=== PATIENT | male | born 1960 | race Caucasian/White ===

== ENCOUNTER 2016-08-19 12:08 | Inpatient (IN) | payer OTHER ==
[2016-08-19 15:33] VITALS: BMI 34.2
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
[2016-08-19] MEDS ORDERED: MAGNESIUM CITRATE 300 ML BOTTLE PO PRN (18:05)
[2016-08-19] MEDS ORDERED: MENTHOL/PHENOL 1 EACH UD MM PRN (18:05)
[2016-08-19] MEDS ORDERED: LOPERAMIDE HCL 2 MG CAPSULE PO PRN (18:05)
[2016-08-19] MEDS ORDERED: P-EPHED 60MG/TRIPROLIDI 2.5MG TABLET PO PRN (18:05)
[2016-08-19] MEDS ORDERED: guaiFENesin/D-METHORPHAN HB 10 ML UNIT-DOSE CUPS PO PRN (18:05)
[2016-08-19] MEDS: diphenhydrAMINE HCL 50 MG CAPSULE PO PRN (23:44)
[2016-08-19] MEDS: THIAMINE HCL 100 MG TABLET (FP) PO SCH (23:44)
[2016-08-19] MEDS: ARTIFICIAL TEARS (POLYVINYL ALCOHOL 1.4%) OPTH DROPS OD SCH (23:50)
[2016-08-19] MEDS: prednisoLONE ACETATE 1% OPHTH SUSP 5 ML BOTTLE OD SCH (23:50)
[2016-08-20] MEDS: ARTIFICIAL TEARS (POLYVINYL ALCOHOL 1.4%) OPTH DROPS OD SCH ×2 (10:00→21:16)
[2016-08-20] MEDS: prednisoLONE ACETATE 1% OPHTH SUSP 5 ML BOTTLE OD SCH ×2 (10:00→21:16)
[2016-08-20] MEDS: PRENATAL VITAMINS W/ FOLIC ACID TABLET (FP) PO SCH (10:01)
[2016-08-20 10:02] LABS: MCH 33.9 pg (25.7-33.7); MCHC 34.8 g/dl (32.0-35.9); MEAN CELL VOLUME 97.5 fl (80-96); MEAN PLT VOLUME 9.2 fl (7.5-11.1); PLATELET COUNT 257 K/MM3 (134-434); RDW 12.4 % (11.9-15.9); WHITE BLOOD COUNT 7.6 K/mm3 (4.0-10.0)
[2016-08-20] MEDS: IBUPROFEN 400 MG TABLET (FP) PO PRN ×2 (10:02→21:17)
[2016-08-20 10:34] LABS: CALCIUM 9.7 mg/dL (8.5-10.1); COCKROFT - GAULT 108.35; CREATININE 1.3 mg/dL (0.7-1.3); TOT PROT 7.5 g/dl (6.4-8.2)
[2016-08-20 10:37] LABS: BILIRUBIN,TOTAL 0.4 mg/dL (0.2-1.0)
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
--- NOTE | 2016-08-20 12:15 | EKG ---
Test Reason : Blood Pressure : / mmHG Vent. Rate : 096 BPM Atrial Rate : 096 BPM P-R Int : 158 ms QRS Dur : 108 ms QT Int : 338 ms P-R-T Axes : 028 035 056 degrees QTc Int : 427 ms NORMAL SINUS RHYTHM INCOMPLETE RIGHT BUNDLE BRANCH BLOCK BORDERLINE ECG NO PREVIOUS ECGS AVAILABLE Confirmed by HELGA ROLON, GUME ([id number]) on 08/20/2016 12:14:41 PM Referred By: Confirmed By:GUME PARTIDA MD
[2016-08-20] MEDS: GABAPENTIN 100 MG CAPSULE (FP) PO SCH ×2 (14:18→21:17)
[2016-08-20 20:03] LABS: URINE APPEARANCE CLEAR; URINE BILIRUBIN NEGATIVE (NEGATIVE); URINE BLOOD NEGATIVE (NEGATIVE); URINE COLOR STRAW; URINE GLUCOSE (UA) NEGATIVE (NEGATIVE); URINE KETONE NEGATIVE (NEGATIVE); URINE LEUK ESTERASE NEGATIVE (NEGATIVE); URINE NITRITE NEGATIVE (NEGATIVE); URINE PROTEIN NEGATIVE (NEGATIVE); URINE UROBILINOGEN NEGATIVE E.U./dl (0.2-1.0)
[2016-08-20] MEDS: THIAMINE HCL 100 MG TABLET (FP) PO SCH (21:17)
[2016-08-20] MEDS: SUVOREXANT 10 MG TABLET PO PRN (21:19)
[2016-08-21] MEDS: IBUPROFEN 400 MG TABLET (FP) PO PRN ×2 (06:22→21:20)
[2016-08-21] MEDS: GABAPENTIN 100 MG CAPSULE (FP) PO SCH ×3 (06:22→21:19)
[2016-08-21] MEDS: PRENATAL VITAMINS W/ FOLIC ACID TABLET (FP) PO SCH (09:51)
[2016-08-21] MEDS: prednisoLONE ACETATE 1% OPHTH SUSP 5 ML BOTTLE OD SCH ×2 (09:52→21:19)
[2016-08-21] MEDS: ARTIFICIAL TEARS (POLYVINYL ALCOHOL 1.4%) OPTH DROPS OD SCH ×2 (09:52→21:19)
[2016-08-21] MEDS: ACETAMINOPHEN 325 MG TABLET (FP) PO PRN ×2 (09:53→17:13)
[2016-08-21] MEDS: THIAMINE HCL 100 MG TABLET (FP) PO SCH (21:19)
[2016-08-21] MEDS: SUVOREXANT 10 MG TABLET PO PRN (21:21)
[2016-08-22] MEDS: GABAPENTIN 100 MG CAPSULE (FP) PO SCH ×3 (06:22→21:24)
[2016-08-22] MEDS: IBUPROFEN 400 MG TABLET (FP) PO PRN ×2 (06:23→21:27)
[2016-08-22] MEDS: PRENATAL VITAMINS W/ FOLIC ACID TABLET (FP) PO SCH (09:47)
[2016-08-22] MEDS: prednisoLONE ACETATE 1% OPHTH SUSP 5 ML BOTTLE OD SCH ×2 (09:48→21:24)
[2016-08-22] MEDS: ARTIFICIAL TEARS (POLYVINYL ALCOHOL 1.4%) OPTH DROPS OD SCH ×2 (09:49→21:25)
[2016-08-22] MEDS: THIAMINE HCL 100 MG TABLET (FP) PO SCH (21:24)
[2016-08-22] MEDS: SUVOREXANT 10 MG TABLET PO PRN (21:27)
[2016-08-23] MEDS: GABAPENTIN 100 MG CAPSULE (FP) PO SCH ×3 (06:29→21:31)
[2016-08-23] MEDS: IBUPROFEN 400 MG TABLET (FP) PO PRN ×2 (06:31→21:34)
[2016-08-23] MEDS: PRENATAL VITAMINS W/ FOLIC ACID TABLET (FP) PO SCH (09:37)
[2016-08-23] MEDS: ARTIFICIAL TEARS (POLYVINYL ALCOHOL 1.4%) OPTH DROPS OD SCH ×2 (09:38→21:36)
[2016-08-23] MEDS: prednisoLONE ACETATE 1% OPHTH SUSP 5 ML BOTTLE OD SCH ×2 (09:38→21:35)
[2016-08-23] MEDS: THIAMINE HCL 100 MG TABLET (FP) PO SCH (21:31)
[2016-08-23] MEDS: SUVOREXANT 10 MG TABLET PO PRN (21:33)
[2016-08-23] MEDS: MAGNESIUM HYDROX 2400MG/30ML ORAL SUSPENSION 30 ML CUP PO PRN (21:37)
[2016-08-24] MEDS: GABAPENTIN 100 MG CAPSULE (FP) PO SCH ×3 (06:04→21:38)
[2016-08-24] MEDS: IBUPROFEN 400 MG TABLET (FP) PO PRN ×2 (06:05→21:38)
[2016-08-24] MEDS: PRENATAL VITAMINS W/ FOLIC ACID TABLET (FP) PO SCH (09:52)
[2016-08-24] MEDS: ARTIFICIAL TEARS (POLYVINYL ALCOHOL 1.4%) OPTH DROPS OD SCH ×2 (09:52→21:37)
[2016-08-24] MEDS: prednisoLONE ACETATE 1% OPHTH SUSP 5 ML BOTTLE OD SCH ×2 (09:53→21:36)
[2016-08-24] MEDS: MAG HYDROX/AL HYDROX/SIMETH 30 ML UNIT-DOSE CUP PO PRN (09:54)
[2016-08-24] MEDS: ACETAMINOPHEN 325 MG TABLET (FP) PO PRN (14:26)
[2016-08-24] MEDS: THIAMINE HCL 100 MG TABLET (FP) PO SCH (21:38)
[2016-08-24] MEDS: diphenhydrAMINE HCL 50 MG CAPSULE PO PRN (21:39)
[2016-08-25] MEDS: GABAPENTIN 100 MG CAPSULE (FP) PO SCH ×3 (06:26→21:13)
[2016-08-25] MEDS: IBUPROFEN 400 MG TABLET (FP) PO PRN (06:27)
[2016-08-25] MEDS ORDERED: PT OWN MED DRAWER 7, Y5N ONE (08:46)
[2016-08-25] MEDS: PRENATAL VITAMINS W/ FOLIC ACID TABLET (FP) PO SCH (10:05)
[2016-08-25] MEDS: prednisoLONE ACETATE 1% OPHTH SUSP 5 ML BOTTLE OD SCH ×2 (10:06→21:13)
[2016-08-25] MEDS: ARTIFICIAL TEARS (POLYVINYL ALCOHOL 1.4%) OPTH DROPS OD SCH ×2 (10:06→21:13)
[2016-08-25] MEDS: MAG HYDROX/AL HYDROX/SIMETH 30 ML UNIT-DOSE CUP PO PRN (10:09)
[2016-08-25] MEDS: ACETAMINOPHEN 325 MG TABLET (FP) PO PRN (10:09)
--- NOTE | 2016-08-25 15:46 | PN ---
Psychiatric Progress Note Vital Signs: Vital Signs Period Temp Pulse Resp BP Sys/Mckeon Pulse Ox Last 24 Hr 98.5 F 85 18-18 129/84 Date of Session: 08/25/16 Chief Complaint:: progress update HPI: Patient is addressing alcohol, cocaine, opioid cannabis dependence comorbid substance induced sleep and anxiety diorder. Current Medications: Active Medications Generic Name Dose Route Start Last Admin Trade Name Freq PRN Reason Stop Dose Admin Acetaminophen 650 mg 08/19/16 18:05 08/25/16 10:09 Tylenol - PO 650 mg Q4H PRN Administration PAIN Al Hydroxide/Mg Hydroxide 30 ml 08/19/16 18:05 08/25/16 10:09 Mylanta Oral Suspension - PO 30 ml Q6H PRN Administration DYSPEPSIA Artificial Tears 1 drop 08/19/16 22:00 08/25/16 10:06 Artificial Tears OD 1 drop BID ALLY Administration Diphenhydramine HCl 50 mg 08/19/16 18:05 08/24/16 21:39 Benadryl - PO 50 mg HSMR1 PRN Administration INSOMNIA Eucalyptus/Menthol/Phenol/Sorbitol 1 each 08/19/16 18:05 Cepastat Lozenge - MM Q4H PRN SORE THROAT Gabapentin 200 mg 08/25/16 15:36 Neurontin - PO TID ALLY Guaifenesin 10 ml 08/19/16 18:05 Robitussin Dm - PO Q6H PRN COUGH Ibuprofen 400 mg 08/19/16 18:05 08/25/16 06:27 Motrin - PO 400 mg Q6H PRN Administration SEVERE PAIN Loperamide HCl 4 mg 08/19/16 18:05 Imodium - PO Q6H PRN DIARRHEA Magnesium Citrate 300 ml 08/19/16 18:05 Citroma - PO Q48H PRN CONSTIPATION Magnesium Hydroxide 30 ml 08/19/16 18:05 08/23/16 21:37 Milk Of Magnesia - PO 30 ml DAILY PRN Administration CONSTIPATION Prednisolone Acetate 1 drop 08/19/16 22:00 08/25/16 10:06 Pred Forte 1% - OD 1 drop BID ALLY Administration Multivit/Folic Acid/Iron 1 tab 08/20/16 10:00 08/25/16 10:05 Vitamins ([facility]) - PO 1 tab DAILY ALLY Administration Pseudoephedrine/Triprolidine 1 combo 06/13/17 18:05 Actifed - PO TID PRN NASAL CONGESTION Thiamine HCl 100 mg 08/19/16 22:00 08/24/16 21:38 Vitamin B1 - PO 100 mg HS ALLY Administration Current Side Effect: No Lab tests ordered: No Lab tests reviewed: Yes Provider note:: PAtient seem to be adjusted to the unit, he is visible and attends groups. Patient c/o insomnia and anxiety. Reviewed medications with the patient discussed indications and properteies of his current medications, will increase Neurontin 200 mg po tid r/n Belsomra 10 mg po hs, continue to monitor progress. Total face to face time:: 15 Mental Status Exam - Mental Status Exam Alert and Oriented to: Time, Place, Person Cognitive Function: Grossly Intact Patient Appearance: Well Groomed Mood: Anxious Affect: Appropriate, Mood Congruent Patient Behavior: Appropriate, Cooperative Speech Pattern: Appropriate Voice Loudness: Normal Thought Process: Goal Oriented Thought Disorder: Not Present Hallucinations: Denies Suicidal Ideation: Denies Homicidal Ideation: Denies Insight/Judgement: Fair Sleep: Poorly, Difficulty falling asleep Appetite: Good Muscle strength/Tone: Normal Gait/Station: Other (needs assistance, patient is blind) Psychiatric Treatment Plan - Problem List (1) Alcohol dependence Current Visit: Yes (2) Cannabis dependence Current Visit: Yes (3) Cocaine dependence Current Visit: Yes (4) Opioid dependence Current Visit: Yes (5) Anxiety disorder Current Visit: Yes (6) Substance-induced sleep disorder Current Visit: Yes
[2016-08-25] MEDS: THIAMINE HCL 100 MG TABLET (FP) PO SCH (21:13)
[2016-08-25] MEDS: diphenhydrAMINE HCL 50 MG CAPSULE PO PRN (21:13)
[2016-08-26] MEDS: GABAPENTIN 100 MG CAPSULE (FP) PO SCH ×3 (06:29→21:20)
[2016-08-26] MEDS: IBUPROFEN 400 MG TABLET (FP) PO PRN ×2 (06:30→21:22)
[2016-08-26] MEDS: prednisoLONE ACETATE 1% OPHTH SUSP 5 ML BOTTLE OD SCH ×2 (09:48→21:21)
[2016-08-26] MEDS: PRENATAL VITAMINS W/ FOLIC ACID TABLET (FP) PO SCH (09:48)
[2016-08-26] MEDS: ARTIFICIAL TEARS (POLYVINYL ALCOHOL 1.4%) OPTH DROPS OD SCH ×2 (09:48→21:21)
[2016-08-26] MEDS: ACETAMINOPHEN 325 MG TABLET (FP) PO PRN (09:50)
[2016-08-26] MEDS: MAG HYDROX/AL HYDROX/SIMETH 30 ML UNIT-DOSE CUP PO PRN (14:16)
[2016-08-26] MEDS: SUVOREXANT 10 MG TABLET PO PRN (21:21)
[2016-08-26] MEDS: THIAMINE HCL 100 MG TABLET (FP) PO SCH (21:21)
[2016-08-27] MEDS: IBUPROFEN 400 MG TABLET (FP) PO PRN ×2 (07:01→21:13)
[2016-08-27] MEDS: GABAPENTIN 100 MG CAPSULE (FP) PO SCH ×3 (07:01→21:11)
[2016-08-27] MEDS: prednisoLONE ACETATE 1% OPHTH SUSP 5 ML BOTTLE OD SCH ×2 (09:51→21:11)
[2016-08-27] MEDS: ARTIFICIAL TEARS (POLYVINYL ALCOHOL 1.4%) OPTH DROPS OD SCH ×2 (09:51→21:11)
[2016-08-27] MEDS: PRENATAL VITAMINS W/ FOLIC ACID TABLET (FP) PO SCH (09:51)
[2016-08-27] MEDS: ACETAMINOPHEN 325 MG TABLET (FP) PO PRN (09:52)
[2016-08-27] MEDS: THIAMINE HCL 100 MG TABLET (FP) PO SCH (21:11)
[2016-08-27] MEDS: SUVOREXANT 10 MG TABLET PO PRN (21:12)
[2016-08-28] MEDS: IBUPROFEN 400 MG TABLET (FP) PO PRN ×2 (06:12→21:19)
[2016-08-28] MEDS: GABAPENTIN 100 MG CAPSULE (FP) PO SCH ×2 (06:12→14:19)
[2016-08-28] MEDS: prednisoLONE ACETATE 1% OPHTH SUSP 5 ML BOTTLE OD SCH ×2 (09:54→21:16)
[2016-08-28] MEDS: ARTIFICIAL TEARS (POLYVINYL ALCOHOL 1.4%) OPTH DROPS OD SCH ×2 (09:54→21:17)
[2016-08-28] MEDS: PRENATAL VITAMINS W/ FOLIC ACID TABLET (FP) PO SCH (09:54)
[2016-08-28] MEDS: ACETAMINOPHEN 325 MG TABLET (FP) PO PRN (09:56)
[2016-08-28] MEDS ORDERED: GABAPENTIN 100 MG CAPSULE (FP) PO SCH (14:55)
--- NOTE | 2016-08-28 15:01 | PN ---
Psychiatric Progress Note Vital Signs: Vital Signs Period Temp Pulse Resp BP Sys/Mckeon Pulse Ox Last 24 Hr 98.1 F 73 18-18 130/75 Date of Session: 08/28/16 Chief Complaint:: "anxious" HPI: Patient is addressing alcohol, cocaine, opioid cannabis dependence comorbid substance induced sleep and anxiety disorder. ROS: WNL Current Medications: Active Medications Generic Name Dose Route Start Last Admin Trade Name Freq PRN Reason Stop Dose Admin Acetaminophen 650 mg 08/19/16 18:05 08/28/16 09:56 Tylenol - PO 650 mg Q4H PRN Administration PAIN Al Hydroxide/Mg Hydroxide 30 ml 08/19/16 18:05 08/26/16 14:16 Mylanta Oral Suspension - PO 30 ml Q6H PRN Administration DYSPEPSIA Artificial Tears 1 drop 08/19/16 22:00 08/28/16 09:54 Artificial Tears OD 1 drop BID ALLY Administration Diphenhydramine HCl 50 mg 08/19/16 18:05 08/25/16 21:13 Benadryl - PO 50 mg HSMR1 PRN Administration INSOMNIA Eucalyptus/Menthol/Phenol/Sorbitol 1 each 08/19/16 18:05 Cepastat Lozenge - MM Q4H PRN SORE THROAT Gabapentin 2,300 mg 08/28/16 14:55 Neurontin - PO TID ALLY Guaifenesin 10 ml 08/19/16 18:05 Robitussin Dm - PO Q6H PRN COUGH Ibuprofen 400 mg 08/19/16 18:05 08/28/16 06:12 Motrin - PO 400 mg Q6H PRN Administration SEVERE PAIN Loperamide HCl 4 mg 08/19/16 18:05 Imodium - PO Q6H PRN DIARRHEA Magnesium Citrate 300 ml 08/19/16 18:05 Citroma - PO Q48H PRN CONSTIPATION Magnesium Hydroxide 30 ml 08/19/16 18:05 08/23/16 21:37 Milk Of Magnesia - PO 30 ml DAILY PRN Administration CONSTIPATION Prednisolone Acetate 1 drop 08/19/16 22:00 08/28/16 09:54 Pred Forte 1% - OD 1 drop BID ALLY Administration Multivit/Folic Acid/Iron 1 tab 08/20/16 10:00 08/28/16 09:54 Vitamins ([facility]) - PO 1 tab DAILY ALLY Administration Pseudoephedrine/Triprolidine 1 combo 08/19/16 18:05 Actifed - PO TID PRN NASAL CONGESTION Thiamine HCl 100 mg 08/19/16 22:00 08/27/16 21:11 Vitamin B1 - PO 100 mg HS ALLY Administration Current Side Effect: No Lab tests ordered: No Lab tests reviewed: Yes Provider note:: Patient reports has been feeling anxious , states that Gabapentin is partially effective. He discussed his medical issues and importance to continue abstinence and his coming eye surgery. discussed with the patient treatment plan, will increase Gabapentin 300 mg po tid, renew Belsomra, continue to monitor progress. Total face to face time:: 35 Mental Status Exam - Mental Status Exam Alert and Oriented to: Time, Place, Person Cognitive Function: Good Patient Appearance: Well Groomed Mood: Anxious Affect: Appropriate Patient Behavior: Appropriate, Cooperative Speech Pattern: Clear, Appropriate Voice Loudness: Normal Thought Process: Intact Thought Disorder: Not Present Hallucinations: Denies Suicidal Ideation: Denies Homicidal Ideation: Denies Insight/Judgement: Fair Sleep: Fair Psychiatric Treatment Plan - Problem List (1) Alcohol dependence Current Visit: Yes (2) Cannabis dependence Current Visit: Yes (3) Cocaine dependence Current Visit: Yes (4) Opioid dependence Current Visit: Yes (5) Anxiety disorder Current Visit: Yes (6) Substance-induced sleep disorder Current Visit: Yes
[2016-08-28] MEDS: THIAMINE HCL 100 MG TABLET (FP) PO SCH (21:17)
[2016-08-28] MEDS: GABAPENTIN 300 MG CAPSULE (FP) PO SCH (21:17)
[2016-08-28] MEDS: SUVOREXANT 10 MG TABLET PO PRN (21:18)
[2016-08-29] MEDS: IBUPROFEN 400 MG TABLET (FP) PO PRN ×2 (06:01→21:23)
[2016-08-29] MEDS: GABAPENTIN 300 MG CAPSULE (FP) PO SCH ×3 (06:01→21:23)
[2016-08-29] MEDS: ACETAMINOPHEN 325 MG TABLET (FP) PO PRN (09:45)
[2016-08-29] MEDS: PRENATAL VITAMINS W/ FOLIC ACID TABLET (FP) PO SCH (09:45)
[2016-08-29] MEDS: ARTIFICIAL TEARS (POLYVINYL ALCOHOL 1.4%) OPTH DROPS OD SCH ×2 (09:46→21:21)
[2016-08-29] MEDS: prednisoLONE ACETATE 1% OPHTH SUSP 5 ML BOTTLE OD SCH ×2 (09:46→21:22)
[2016-08-29] MEDS: SUVOREXANT 10 MG TABLET PO PRN (21:23)
[2016-08-29] MEDS: THIAMINE HCL 100 MG TABLET (FP) PO SCH (21:24)
[2016-08-30] MEDS: GABAPENTIN 300 MG CAPSULE (FP) PO SCH ×3 (06:38→21:36)
[2016-08-30] MEDS: IBUPROFEN 400 MG TABLET (FP) PO PRN ×2 (06:38→21:35)
[2016-08-30] MEDS: PRENATAL VITAMINS W/ FOLIC ACID TABLET (FP) PO SCH (09:41)
[2016-08-30] MEDS: prednisoLONE ACETATE 1% OPHTH SUSP 5 ML BOTTLE OD SCH ×2 (09:42→23:12)
[2016-08-30] MEDS: ARTIFICIAL TEARS (POLYVINYL ALCOHOL 1.4%) OPTH DROPS OD SCH ×2 (09:42→22:30)
[2016-08-30] MEDS: ACETAMINOPHEN 325 MG TABLET (FP) PO PRN (09:43)
[2016-08-30] MEDS: MAG HYDROX/AL HYDROX/SIMETH 30 ML UNIT-DOSE CUP PO PRN (14:12)
[2016-08-30] MEDS: THIAMINE HCL 100 MG TABLET (FP) PO SCH (21:33)
[2016-08-30] MEDS: diphenhydrAMINE HCL 50 MG CAPSULE PO PRN (21:33)
[2016-08-31] MEDS: GABAPENTIN 300 MG CAPSULE (FP) PO SCH ×3 (06:41→21:15)
[2016-08-31] MEDS: IBUPROFEN 400 MG TABLET (FP) PO PRN ×2 (06:41→21:14)
[2016-08-31] MEDS: ARTIFICIAL TEARS (POLYVINYL ALCOHOL 1.4%) OPTH DROPS OD SCH ×2 (09:56→21:15)
[2016-08-31] MEDS: prednisoLONE ACETATE 1% OPHTH SUSP 5 ML BOTTLE OD SCH ×2 (09:56→21:14)
[2016-08-31] MEDS: PRENATAL VITAMINS W/ FOLIC ACID TABLET (FP) PO SCH (09:57)
[2016-08-31] MEDS: ACETAMINOPHEN 325 MG TABLET (FP) PO PRN (09:58)
[2016-08-31] MEDS: MAG HYDROX/AL HYDROX/SIMETH 30 ML UNIT-DOSE CUP PO PRN (14:57)
[2016-08-31] MEDS: SUVOREXANT 10 MG TABLET PO PRN (21:14)
[2016-08-31] MEDS: THIAMINE HCL 100 MG TABLET (FP) PO SCH (21:16)
[2016-09-01] MEDS: IBUPROFEN 400 MG TABLET (FP) PO PRN ×2 (05:47→21:23)
[2016-09-01] MEDS: GABAPENTIN 300 MG CAPSULE (FP) PO SCH ×3 (05:47→21:21)
[2016-09-01] MEDS: prednisoLONE ACETATE 1% OPHTH SUSP 5 ML BOTTLE OD SCH ×2 (10:07→21:22)
[2016-09-01] MEDS: ARTIFICIAL TEARS (POLYVINYL ALCOHOL 1.4%) OPTH DROPS OD SCH ×2 (10:08→21:22)
[2016-09-01] MEDS: ACETAMINOPHEN 325 MG TABLET (FP) PO PRN (10:09)
[2016-09-01] MEDS: PRENATAL VITAMINS W/ FOLIC ACID TABLET (FP) PO SCH (10:10)
[2016-09-01] MEDS: THIAMINE HCL 100 MG TABLET (FP) PO SCH (21:21)
[2016-09-01] MEDS: diphenhydrAMINE HCL 50 MG CAPSULE PO PRN (21:22)
[2016-09-02] MEDS: IBUPROFEN 400 MG TABLET (FP) PO PRN ×2 (05:48→21:35)
[2016-09-02] MEDS: GABAPENTIN 300 MG CAPSULE (FP) PO SCH ×3 (05:48→21:14)
[2016-09-02] MEDS: PRENATAL VITAMINS W/ FOLIC ACID TABLET (FP) PO SCH (10:06)
[2016-09-02] MEDS: ARTIFICIAL TEARS (POLYVINYL ALCOHOL 1.4%) OPTH DROPS OD SCH ×2 (10:06→21:13)
[2016-09-02] MEDS: prednisoLONE ACETATE 1% OPHTH SUSP 5 ML BOTTLE OD SCH ×2 (10:06→21:14)
[2016-09-02] MEDS: ACETAMINOPHEN 325 MG TABLET (FP) PO PRN (10:07)
[2016-09-02] MEDS: MAG HYDROX/AL HYDROX/SIMETH 30 ML UNIT-DOSE CUP PO PRN (14:21)
[2016-09-02] MEDS: THIAMINE HCL 100 MG TABLET (FP) PO SCH (21:14)
[2016-09-02] MEDS: MAGNESIUM HYDROX 2400MG/30ML ORAL SUSPENSION 30 ML CUP PO PRN (21:15)
[2016-09-02] MEDS: diphenhydrAMINE HCL 50 MG CAPSULE PO PRN (21:16)
[2016-09-03] MEDS: IBUPROFEN 400 MG TABLET (FP) PO PRN ×2 (07:05→21:14)
[2016-09-03] MEDS: GABAPENTIN 300 MG CAPSULE (FP) PO SCH ×3 (07:05→21:13)
[2016-09-03] MEDS: prednisoLONE ACETATE 1% OPHTH SUSP 5 ML BOTTLE OD SCH ×2 (09:52→21:13)
[2016-09-03] MEDS: ARTIFICIAL TEARS (POLYVINYL ALCOHOL 1.4%) OPTH DROPS OD SCH ×2 (09:52→21:13)
[2016-09-03] MEDS: PRENATAL VITAMINS W/ FOLIC ACID TABLET (FP) PO SCH (09:52)
[2016-09-03] MEDS: ACETAMINOPHEN 325 MG TABLET (FP) PO PRN (09:53)
[2016-09-03] MEDS: MAG HYDROX/AL HYDROX/SIMETH 30 ML UNIT-DOSE CUP PO PRN (09:54)
[2016-09-03] MEDS: THIAMINE HCL 100 MG TABLET (FP) PO SCH (21:13)
[2016-09-03] MEDS: diphenhydrAMINE HCL 50 MG CAPSULE PO PRN (21:15)
[2016-09-04] MEDS: IBUPROFEN 400 MG TABLET (FP) PO PRN ×2 (06:43→21:05)
[2016-09-04] MEDS: GABAPENTIN 300 MG CAPSULE (FP) PO SCH ×3 (06:43→21:03)
[2016-09-04] MEDS: PRENATAL VITAMINS W/ FOLIC ACID TABLET (FP) PO SCH (10:02)
[2016-09-04] MEDS: prednisoLONE ACETATE 1% OPHTH SUSP 5 ML BOTTLE OD SCH ×2 (10:03→21:03)
[2016-09-04] MEDS: ARTIFICIAL TEARS (POLYVINYL ALCOHOL 1.4%) OPTH DROPS OD SCH ×2 (10:03→21:03)
[2016-09-04] MEDS: ACETAMINOPHEN 325 MG TABLET (FP) PO PRN (10:04)
[2016-09-04] MEDS: THIAMINE HCL 100 MG TABLET (FP) PO SCH (21:03)
[2016-09-04] MEDS: diphenhydrAMINE HCL 50 MG CAPSULE PO PRN (21:04)
[2016-09-05] MEDS: IBUPROFEN 400 MG TABLET (FP) PO PRN ×2 (06:39→21:20)
[2016-09-05] MEDS: GABAPENTIN 300 MG CAPSULE (FP) PO SCH ×3 (06:39→21:18)
[2016-09-05] MEDS: ARTIFICIAL TEARS (POLYVINYL ALCOHOL 1.4%) OPTH DROPS OD SCH ×2 (09:55→21:18)
[2016-09-05] MEDS: prednisoLONE ACETATE 1% OPHTH SUSP 5 ML BOTTLE OD SCH ×2 (09:56→21:19)
[2016-09-05] MEDS: PRENATAL VITAMINS W/ FOLIC ACID TABLET (FP) PO SCH (09:56)
[2016-09-05] MEDS: ACETAMINOPHEN 325 MG TABLET (FP) PO PRN (09:58)
[2016-09-05] MEDS: THIAMINE HCL 100 MG TABLET (FP) PO SCH (21:18)
[2016-09-05] MEDS: diphenhydrAMINE HCL 50 MG CAPSULE PO PRN (21:20)
[2016-09-05] MEDS: MAGNESIUM HYDROX 2400MG/30ML ORAL SUSPENSION 30 ML CUP PO PRN (22:17)
[2016-09-06] MEDS: GABAPENTIN 300 MG CAPSULE (FP) PO SCH ×3 (06:11→21:17)
[2016-09-06] MEDS: IBUPROFEN 400 MG TABLET (FP) PO PRN ×2 (06:12→21:17)
[2016-09-06] MEDS: ARTIFICIAL TEARS (POLYVINYL ALCOHOL 1.4%) OPTH DROPS OD SCH ×2 (09:40→21:19)
[2016-09-06] MEDS: PRENATAL VITAMINS W/ FOLIC ACID TABLET (FP) PO SCH (09:40)
[2016-09-06] MEDS: prednisoLONE ACETATE 1% OPHTH SUSP 5 ML BOTTLE OD SCH ×2 (09:40→21:19)
[2016-09-06] MEDS: ACETAMINOPHEN 325 MG TABLET (FP) PO PRN (09:41)
[2016-09-06] MEDS: THIAMINE HCL 100 MG TABLET (FP) PO SCH (21:17)
[2016-09-06] MEDS: diphenhydrAMINE HCL 50 MG CAPSULE PO PRN (21:18)
[2016-09-07] MEDS: MAGNESIUM HYDROX 2400MG/30ML ORAL SUSPENSION 30 ML CUP PO PRN (01:26)
[2016-09-07] MEDS: diphenhydrAMINE HCL 50 MG CAPSULE PO PRN ×2 (01:27→21:30)
[2016-09-07] MEDS: GABAPENTIN 300 MG CAPSULE (FP) PO SCH ×3 (05:55→21:30)
[2016-09-07] MEDS: IBUPROFEN 400 MG TABLET (FP) PO PRN ×2 (05:55→21:31)
[2016-09-07] MEDS: PRENATAL VITAMINS W/ FOLIC ACID TABLET (FP) PO SCH (09:43)
[2016-09-07] MEDS: prednisoLONE ACETATE 1% OPHTH SUSP 5 ML BOTTLE OD SCH ×2 (09:44→21:33)
[2016-09-07] MEDS: ARTIFICIAL TEARS (POLYVINYL ALCOHOL 1.4%) OPTH DROPS OD SCH ×2 (09:44→21:33)
[2016-09-07] MEDS: MAG HYDROX/AL HYDROX/SIMETH 30 ML UNIT-DOSE CUP PO PRN (09:46)
[2016-09-07] MEDS: ACETAMINOPHEN 325 MG TABLET (FP) PO PRN (09:46)
[2016-09-07] MEDS: THIAMINE HCL 100 MG TABLET (FP) PO SCH (21:30)
[2016-09-08 05:52] VITALS: BP 123/83; PULSE 78; TEMP 97.5
[2016-09-08] MEDS: IBUPROFEN 400 MG TABLET (FP) PO PRN (07:23)
[2016-09-08] MEDS: GABAPENTIN 300 MG CAPSULE (FP) PO SCH (07:23)
[2016-09-08] MEDS: ARTIFICIAL TEARS (POLYVINYL ALCOHOL 1.4%) OPTH DROPS OD SCH (10:10)
[2016-09-08] MEDS: prednisoLONE ACETATE 1% OPHTH SUSP 5 ML BOTTLE OD SCH (10:10)
[2016-09-08] MEDS: PRENATAL VITAMINS W/ FOLIC ACID TABLET (FP) PO SCH (10:10)
[2016-09-08] MEDS ORDERED: PT OWN MED DRAWER 7, Y5N ONE (10:11)
--- NOTE | 2016-09-08 12:05 | PN ---
Psychiatric Progress Note Vital Signs: Vital Signs Period Temp Pulse Resp BP Sys/Mckeon Pulse Ox Last 24 Hr 97.5 F 78 18-18 123/83 Date of Session: 09/08/16 Chief Complaint:: discharge visit HPI: Patient is addressing alcohol, cocaine, opioid cannabis dependence comorbid substance induced sleep and anxiety disorder. ROS: WNL Current Medications: Active Medications Generic Name Dose Route Start Last Admin Trade Name Freq PRN Reason Stop Dose Admin Acetaminophen 650 mg 08/19/16 18:05 09/07/16 09:46 Tylenol - PO 650 mg Q4H PRN Administration PAIN Al Hydroxide/Mg Hydroxide 30 ml 08/19/16 18:05 09/07/16 09:46 Mylanta Oral Suspension - PO 30 ml Q6H PRN Administration DYSPEPSIA Artificial Tears 1 drop 08/19/16 22:00 09/08/16 10:10 Artificial Tears OD 1 drop BID ALLY Administration Diphenhydramine HCl 50 mg 08/19/16 18:05 09/07/16 21:30 Benadryl - PO 50 mg HSMR1 PRN Administration INSOMNIA Eucalyptus/Menthol/Phenol/Sorbitol 1 each 08/19/16 18:05 Cepastat Lozenge - MM Q4H PRN SORE THROAT Gabapentin 300 mg 08/28/16 22:00 09/08/16 07:23 Neurontin - PO 300 mg TID ALLY Administration Guaifenesin 10 ml 08/19/16 18:05 Robitussin Dm - PO Q6H PRN COUGH Ibuprofen 400 mg 08/19/16 18:05 09/08/16 07:23 Motrin - PO 400 mg Q6H PRN Administration SEVERE PAIN Loperamide HCl 4 mg 08/19/16 18:05 Imodium - PO Q6H PRN DIARRHEA Magnesium Citrate 300 ml 08/19/16 18:05 Citroma - PO Q48H PRN CONSTIPATION Magnesium Hydroxide 30 ml 08/19/16 18:05 09/07/16 01:26 Milk Of Magnesia - PO 30 ml DAILY PRN Administration CONSTIPATION Prednisolone Acetate 1 drop 08/19/16 22:00 09/08/16 10:10 Pred Forte 1% - OD 1 drop BID ALLY Administration Multivit/Folic Acid/Iron 1 tab 08/20/16 10:00 09/08/16 10:10 Vitamins ([facility]) - PO 1 tab DAILY ALLY Administration Pseudoephedrine/Triprolidine 1 combo 08/19/16 18:05 Actifed - PO TID PRN NASAL CONGESTION Thiamine HCl 100 mg 08/19/16 22:00 09/07/16 21:30 Vitamin B1 - PO 100 mg HS ALLY Administration Current Side Effect: No Lab tests ordered: No Lab tests reviewed: Yes Provider note:: Patient has completed today his treatment and met his goals, will continue to address his issues at [facility] outpatient clinic. Patient focused on insights he gained in this treatment and ways to utilize supports to prevent relapses.He is educated on his addiction , implications and consequences on his physical and mental health. Medications well tolerated, patient reported he is less anxious and more hopefull. Scripts provided, patient is stable for discharge today. Total face to face time:: 35 Mental Status Exam - Mental Status Exam Alert and Oriented to: Time, Place, Person Cognitive Function: Good Patient Appearance: Well Groomed Mood: Hopeful Affect: Appropriate, Mood Congruent Patient Behavior: Appropriate, Cooperative Speech Pattern: Clear, Appropriate Voice Loudness: Normal Thought Process: Intact, Goal Oriented Thought Disorder: Not Present Hallucinations: Denies Suicidal Ideation: Denies Homicidal Ideation: Denies Insight/Judgement: Fair Sleep: Fair Appetite: Good Muscle strength/Tone: Normal Psychiatric Treatment Plan - Problem List (1) Alcohol dependence Current Visit: Yes (2) Cannabis dependence Current Visit: Yes (3) Cocaine dependence Current Visit: Yes (4) Opioid dependence Current Visit: Yes (5) Anxiety disorder Current Visit: Yes (6) Substance-induced sleep disorder Current Visit: Yes
== END 2016-09-08 11:15 | disposition home or self-care (01) | DRG 772 ==
LOC: YASAS 12:08 → Y5N 18:35
PROVIDERS: ADMIT Psychiatry & Neurology Psychiatry; ATTEND Psychiatry & Neurology Psychiatry
PROC: HZ42ZZZ Group Counseling for Substance Abuse Treatment, Cognitive-Behavioral (ICD-10-PCS; principal; 2016-08-19)
DX: F11.20 Opioid dependence, uncomplicated (principal); F10.20 Alcohol dependence, uncomplicated; F14.20 Cocaine dependence, uncomplicated; F12.20 Cannabis dependence, uncomplicated; F41.9 Anxiety disorder, unspecified; F19.282 Other psychoactive substance dependence with psychoactive substance-induced sleep disorder; Z97.0 Presence of artificial eye
CPT/HCPCS: 36415; 71020-TC; 80053; 81003; 85027; 86593; 93005; 93010